=== PATIENT | male | born 1955 | race Caucasian/White ===

== ENCOUNTER 2023-08-04 01:42 | Emergency (ER) | payer OTHER ==
[~2023-08-04] VITALS: Ht 182.9 cm; Wt 124.7 kg
[2023-08-04 01:45] VITALS: BP_SYST 147; PULSE 83; RESP 16; TEMP 97.5; O2SAT 95
[2023-08-04] MEDS: KETOROLAC TROMETHAMINE 30 MG VIAL IVP ONE (02:38)
[2023-08-04 03:49] LABS: BASOPHILS # (AUTO) 0.1 K/uL (0.0-0.2); BASOPHILS % (AUTO) 0.9 % (0.0-2.0); EOSINOPHILS # (AUTO) 0.1 K/uL (0.0-0.4); EOSINOPHILS % (AUTO) 1.5 % (0.0-4.0); HEMATOCRIT 46.2 % (36-54); HEMOGLOBIN 15.9 g/dL (14.0-18.0); LYMPHOCYTES # (AUTO) 2.5 K/uL (1.0-5.5); LYMPHOCYTES % (AUTO) 37.9 % (20.5-51.5); MEAN CORPUSCULAR HEMOGLOBIN 30 pg (27-31); MEAN CORPUSCULAR HGB CONC 35 % (32-36); MEAN CORPUSCULAR VOLUME 87 fL (79.0-98.0); MONOCYTES # (AUTO) 0.6 K/uL (0.0-1.0); MONOCYTES % (AUTO) 8.9 % (1.7-9.3); NEUTROPHILS # (AUTO) 3.3 K/uL (1.8-7.7); NEUTROPHILS % (AUTO) 50.8 % (40.0-70.0); PLATELET COUNT (AUTO) 271 K/uL (130-430); RED CELL DISTRIBUTION WIDTH 14.4 % (9.0-15.0); WHITE BLOOD COUNT (AUTO) 6.5 K/uL (4.8-10.8)
[2023-08-04] MEDS: HYDROcodone/ACETAMIN 5-325 MG TAB (NORCO/ VICODIN) PO ONE (03:52)
[2023-08-04 03:56] LABS: ALBUMIN 3.7 g/dL (3.4-4.8); BILIRUBIN,DIRECT 0.1 mg/dL (0.0-0.3); CALCIUM 9.6 mg/dL (8.4-11.0); CREATININE 1.16 mg/dL (0.55-1.30); POTASSIUM 4.6 mmol/L (3.5-5.1); TOTAL BILIRUBIN 0.6 mg/dL (0.0-1.0); TOTAL PROTEIN, SERUM 7.6 g/dL (6.4-8.3)
[2023-08-04] MEDS ORDERED: MELO-89 PO (04:46)
[2023-08-04] MEDS ORDERED: HYDR-3917 PO (04:46)
[2023-08-04 04:50] VITALS: BP_SYST 126; PULSE 73; RESP 18; TEMP 97.7; O2SAT 94
== END 2023-08-04 04:50 | disposition home or self-care (01) ==
LOC: SED 01:42
DX: S20.219A Contusion of unspecified front wall of thorax, initial encounter (principal); R10.9 Unspecified abdominal pain; M54.50 Low back pain, unspecified; I10 Essential (primary) hypertension; W22.8XXA Striking against or struck by other objects, initial encounter; Y93.89 Activity, other specified; Y92.89 Other specified places as the place of occurrence of the external cause; Y99.8 Other external cause status
CPT/HCPCS: 99285; 74176; 80076; 80048; 83690; 85025; 36415; 72110; 96372; J1885